=== PATIENT | male | born 2000 | race Caucasian/White ===

== ENCOUNTER 2019-04-06 12:01 | Emergency (ER) | payer BC, SELFPAY ==
[2019-04-06 12:31] VITALS: BP 120/69; PULSE 121; RESP 16; TEMP 38.7; O2SAT 98
--- NOTE | 2019-04-06 13:14 | ED.GENADULT ---
HPI - General Adult General Chief complaint: Upper Respiratory Infection Stated complaint: SORE THROAT/COUGH/BODY ACHES/FEVER Time Seen by Provider: 04/06/19 13:17 Source: patient and RN notes reviewed Mode of arrival: ambulatory Limitations: no limitations History of Present Illness HPI narrative: This is a 18 years old male presented office with his mother for evaluation of flulike symptoms for 2 to 3-day. Symptoms began with generalized body aches, scratchy throat, stuffy nose and a little cough. Fever was quite high this morning up to 103. He took DayQuil prior to arrival. He did not receive influenza vaccine for the season.Denies sick contact. Related Data Allergies Allergy/AdvReac Type Severity Reaction Status Date / Time No Known Allergies Allergy Verified 04/06/19 12:30 Review of Systems Review of Systems: Narrative: CONSTITUTIONAL: Reports fever, chills, sweats. ENT: Reports rhinorrhea, congestion, sore throat CARDIOVASCULAR: Denies chest pain RESPIRATORY: Denies dyspnea, wheezing GASTROINTESTINAL: Denies abdominal pain, nausea, vomiting, diarrhea. GENITOURINARY: Denies urinary symptoms or discharge SKIN: Denies rash MUSCULOSKELETAL: Denies acute back pain NEUROLOGIC: Denies lightheaded PMFSH Comments At time of signature, I agree with nursing past medical, surgical, social and family history. There is no relevant family history pertinent to the presenting complaint. Exam Narrative: Exam Narrative: GENERAL: This is a well-nourished, well-developed patient,ill apparent; but not in no apparent distress. EYES: PERRL. Sclera clear/white. Vision is grossly intact. EARS: External ears normal, auditory canals clear and without drainage, TMs normal without perforation. Hearing grossly intact. NOSE: External nose normal with no obvious nasal discharge, nares without redness, no rhinorrhea. THROAT: Mucous membranes moist, posterior pharynx clear. NECK: Neck supple, non-tender without lymphadenopathy, masses or thyromegaly. CARDIOVASCULAR: Regular rate and rhythm without murmurs, gallops, or rubs. RESPIRATORY: Clear to auscultation. Breath sounds equal bilaterally. No wheezes, rales, or rhonchi. GASTROINTESTINAL: Abdomen soft, non-tender, nondistended. Bowel sounds are active. No hepato-splenomegaly, or palpable masses. No guarding. SKIN: warm, intact with no suspicious lesions or rash, good texture and turgor. NEURO: awake, alert, and oriented to person, place and time. There were no obvious focal neurologic abnormalities. Steady gait Shahzad Coma Scale Eye Opening: Spontaneous 4 [place] Coma Scale Motor: Obeys Commands 6 Shahzad Coma Scale Verbal: Oriented 5 Course Vital Signs Vital signs: Vital Signs Temperature 101.7 F H 04/06/19 12:31 Pulse Rate 121 H 04/06/19 12:31 Respiratory Rate 04/06/19 12:31 Blood Pressure 120/69 04/06/19 12:31 Pulse Oximetry 98 04/06/19 12:31 Temperature 101.7 F H 04/06/19 12:31 Pulse Rate 121 H 04/06/19 12:31 Respiratory Rate 16 04/06/19 12:31 Blood Pressure 120/69 04/06/19 12:31 Pulse Oximetry 98 04/06/19 12:31 Medical Decision Making MDM Narrative Medical decision making narrative: Discharge instructions reviewed with patient, as well as provided in writing per nursing staff. The instructions also include specific and strict return/GO TO THE ER as well as f/u information. All questions have been answered, and the patient and mother deny any further questions with discharge and discharge plan. Differential Diagnosis Differential Diagnosis: pneumonia, Allergic Rhinitis, Upper respiratory cough syndrome, Pharyngitis, Sinusitis, Bronchitis, otitis media, viral URI, Asthma/reactive airway disease, influenza Vital Signs Vital Signs: Vital Signs Temperature 101.7 F H 04/06/19 12:31 Pulse Rate 121 H 04/06/19 12:31 Respiratory Rate 04/06/19 12:31 Blood Pressure 120/69 04/06/19 12:31 Pulse Oximetry 98 04/06/19 12:31 [place]
== END 2019-04-06 13:32 | disposition home or self-care (01) ==
PROVIDERS: Emergency Provider Nurse Practitioner
DX: J10.1 Influenza due to other identified influenza virus with other respiratory manifestations (principal)
CPT/HCPCS: 87081; 87804; 87880; 99203; G0463